=== PATIENT | male | born 2000 | race Hispanic/Latino ===

== ENCOUNTER 2021-12-26 01:19 | Emergency (ER) | payer MEDICAID ==
[~2021-12-26] VITALS: Ht 167.6 cm; Wt 54.9 kg
[2021-12-26] MEDS ORDERED: ACETAMINOPHEN 500 MG TABLET ONE (01:47)
[2021-12-26] MEDS ORDERED: ACETAMINOPHEN 500 MG TABLET PO ONE (02:00)
[2021-12-26 02:56] VITALS: BP 102/65
== END 2021-12-26 03:01 | disposition home or self-care (01) ==
LOC: EDH 01:19
DX: B34.9 Viral infection, unspecified (principal); Z20.822 Contact with and (suspected) exposure to COVID-19
CPT/HCPCS: 87635; 87804 ×2; 99283; C9803

== ENCOUNTER 2022-01-01 00:22 | Emergency (ER) | payer MEDICAID ==
[~2022-01-01] VITALS: Ht 167.6 cm; Wt 46.3 kg
[2022-01-01] MEDS ORDERED: HYD25 PO (02:19)
[2022-01-01 02:44] VITALS: BP 120/76
== END 2022-01-01 03:03 | disposition home or self-care (01) ==
LOC: EDH 00:22
DX: F41.9 Anxiety disorder, unspecified (principal); R07.89 Other chest pain; R51.9 Headache, unspecified; R11.2 Nausea with vomiting, unspecified; M54.2 Cervicalgia; R06.02 Shortness of breath; R05.9 Cough, unspecified
CPT/HCPCS: 93005